=== PATIENT | female | born 1980 | race Two or more races ===

== ENCOUNTER 2018-09-18 08:07 | Emergency (ER) | payer SELFPAY ==
[~2018-09-18] VITALS: Ht 154.9 cm; Wt 70.6 kg
[2018-09-18 08:09] VITALS: BP 161/92
[2018-09-18] MEDS ORDERED: LEVO75TA5 PO (08:25)
[2018-09-18] MEDS ORDERED: METF500T17 PO (08:25)
[2018-09-18 09:08] LABS: BASOPHILS # (AUTO) 0.03 x10^3/uL (0-0.1); BASOPHILS % (AUTO) 1 % (0-1); EOSINOPHILS # (AUTO) 0.26 x10^3/uL (0-0.4); EOSINOPHILS % (AUTO) 5 % (1-7); LYMPHOCYTES # (AUTO) 2.34 x10^3/uL (1-3.4); LYMPHOCYTES % (AUTO) 50 % (22-44); MD NO; MEAN CORPUSCULAR HEMOGLOBIN 30.1 pg (27.0-34.8); MEAN CORPUSCULAR HGB CONC 33.4 g/dL (32.4-35.8); MEAN CORPUSCULAR VOLUME 90.3 fL (80-100); MEAN PLATELET VOLUME 7.9 fL (7.4-10.4); MONOCYTES # (AUTO) 0.33 x10^3/uL (0.2-0.8); MONOCYTES % (AUTO) 7 % (2-9); NEUTROPHILS # (AUTO) 1.75 x10^3/uL (1.8-6.8); NEUTROPHILS % (AUTO) 37 % (42-75); PLATELET COUNT 269 x10^3/uL (130-400); RED BLOOD COUNT 4.29 x10^6/uL (3.82-5.3); RED CELL DISTRIBUTION WIDTH 14.1 % (9.6-15.2)
[2018-09-18 09:20] LABS: ALBUMIN 3.9 g/dL (3.4-5.0); ANION GAP 8 mmol/L (5-15); CALCIUM 8.8 mg/dL (8.5-10.1); CHLORIDE 105 mmol/L (98-107)
[2018-09-18 09:24] LABS: FREE T4 (FREE THYROXINE) 0.97 ng/dL (0.76-1.46)
--- NOTE | 2018-09-18 10:02 | NUR ---
Pt resting in bed, NADN, denies needs.
== END 2018-09-18 10:07 | disposition home or self-care (01) ==
LOC: ED 10:00
DX: R53.1 Weakness (principal); E03.1 Congenital hypothyroidism without goiter; Z72.9 Problem related to lifestyle, unspecified; Z76.0 Encounter for issue of repeat prescription
CPT/HCPCS: 36415; 80048; 82040; 84439; 84443; 84703; 85025; 99283